=== PATIENT | male | born 1960 | race Caucasian/White ===

== ENCOUNTER 2021-06-02 18:16 | Inpatient (IN) | payer OTHER ==
--- NOTE | 2021-06-02 19:39 | RAD REPORT ---
EXAM DESCRIPTION: RAD - Chest Single View - 06/02/2021 7:27 pm CLINICAL HISTORY: DYSPNEA COMPARISON: No comparisons FINDINGS: Lines: None. Lungs: Diffuse prominence of the pulmonary interstitium. More focal type opacities are present at the right lung base. Pleural: No significant pleural effusions or pneumothorax. Cardiac: Cardiomegaly. Bones: No acute fractures. Other: IMPRESSION: Findings likely representing edema. More focal opacities at the right lung base could re present atelectasis. Pneumonia difficult to entirely exclude.
[2021-06-02 19:49] LABS: Absolute Lymphocytes (CBC) 1.2 K/uL (0.7-4.9); Basophils % 0.8 % (0-1.3); Hematocrit 45.3 % (39.6-49.0); Lymphocytes % 18.3 % (15.3-44.8); MPV 8.1 fL (7.6-11.3); RBC Red Blood Cell Count 5.27 M/uL (4.33-5.43)
--- NOTE | 2021-06-02 19:49 | ER ---
Nurse's Notes [facility] Name: Meek Abreu Age: 61 yrs Sex: Male : 1960 Arrival Date: 06/02/2021 Time: 18:24 Bed 5 Private MD: Diagnosis: Essential (primary) hypertension;Unspecified combined systolic (congestive) and diastolic (congestive) heart failure;Edema, unspecified;Unspecified kidney failure;Obesity, unspecified Presentation: 06/02 18:30 Chief complaint: Patient states: Pt states difficulty breathing x1 month, JELENA lower vg1 extremity swelling x2 weeks and JELENA lower extremity weeping. States is suppose to weight 180# but is now 220#; states weight increase within two weeks. Coronavirus screen: Vaccine status: Patient reports being unvaccinated. Client denies travel out of the [place] in the last 14 days. Ebola Screen: Patient negative for fever greater than or equal to 101.5 degrees Fahrenheit, and additional compatible Ebola Virus Disease symptoms. Initial Sepsis Screen: Does the patient meet any 2 criteria? RR > 20 per min. Risk Assessment: Do you want to hurt yourself or someone else? Patient reports no desire to harm self or others. Onset of symptoms was May 03, 2021. 18:30 Method Of Arrival: Ambulatory vg1 18:30 Acuity: KEILA 3 vg1 19:27 Initial Sepsis Screen: Does the patient have a suspected source of infection? No. as6 Patient's initial sepsis screen is negative. Triage Assessment: 18:37 General: Appears in no apparent distress. uncomfortable, Behavior is calm, cooperative. vg1 Pain: Complains of pain in chest Pain currently is 4 out of 10 on a pain scale. Respiratory: Reports shortness of breath at rest on exertion labored breathing Onset: The symptoms/episode began/occurred states difficulty breathing x1 month, the patient has moderate shortness of breath. Historical: - Allergies: 18:37 No Known Allergies; vg1 - Home Meds: 18:37 None [Active]; vg1 - Immunization history:: Client reports having NOT received the Covid vaccine. - Social history:: Smoking status: Patient reports the use of cigarette tobacco products, denies chronic smoking, but will smoke occasionally. Screenin:27 Abuse screen: Denies threats or abuse. Nutritional screening: No deficits noted. as6 Tuberculosis screening: No symptoms or risk factors identified. Fall Risk None identified. Assessment: 19:23 General: Appears in no apparent distress. comfortable, Behavior is calm, cooperative. as6 Pain: Denies pain. Neuro: Level of Consciousness is awake, alert, obeys commands, Oriented to person, place, time, situation, Reports weakness. Cardiovascular: Heart tones S1 S2 present Capillary refill < 3 seconds Patient's skin is warm and dry. Edema is 4+ to BLE pitting to BLE Parent/caregiver reports patient has had fatigue. Cardiovascular:. Respiratory: Reports shortness of breath Airway is patent Trachea midline Respiratory effort is even, unlabored, Respiratory pattern is regular, symmetrical, Breath sounds with crackles bilaterally. Derm: Skin is intact, weeping to BLE. 21:34 Reassessment: Patient appears in no apparent distress at this time. as6 22:09 Reassessment: attempted to call report. as6 Vital Signs: 18:30 BP 209 / 119; Pulse 98; Resp 26; Temp 98.1; Pulse Ox 96% ; Weight 100.24 kg; Height 5 vg1 ft. 9 in. (175.26 cm); Pain 4/10; 19:26 BP 204 / 118; Pulse 93; Resp 26 S; Pulse Ox 97% on R/A; as6 21:17 BP 199 / 116; Pulse 84; Resp 22 S; Pulse Ox 96% on R/A; as6 22:07 BP 151 / 86; Pulse 72; Resp 19 S; Pulse Ox 96% on R/A; as6 18:30 Body Mass Index 32.64 (100.24 kg, 175.26 cm) vg1 ED Course: 18:24 Patient arrived in ED. ja2 18:37 Triage completed. vg1 18:37 Arm band placed on. vg1 19:06 Barrett Bradford, RN is Primary Nurse. bp 19:21 Inserted saline lock: 18 gauge in right antecubital area, using aseptic technique. as6 Blood collected. 19:27 XRAY Chest (1 view) In Process Unspecified. EDMS 19:27 Placed in gown. Bed in low position. Call light in reach. Side rails up X2. Adult w/ as6 patient. monitor tech on. Pulse ox on. NIBP on. 19:30 Glen Worrell MD is Attending Physician. salud 19:48 Storm Williamson DO is Hospitalizing Provider. salud 21:33 COVID-19 SARS RT PCR (Document "Date of Onset" if Symptomatic) Sent. as6 22:26 No provider procedures requiring assistance completed. Patient admitted, IV remains in as6 place. Administered Medications: 20:10 Drug: Nitro-Bid (nitroglycerin) Ointment 2 % 1 inches Route: Transdermal; Site: as6 anterior chest wall; 21:26 Follow up: Response: No adverse reaction as6 20:10 Drug: Lasix (furosemide) 40 mg Route: IVP; Site: right antecubital; as6 21:26 Follow up: Response: No adverse reaction as6 20:10 Drug: Lopressor (metoprolol TARTRATE) 50 mg Route: PO; as6 21:26 Follow up: Response: No adverse reaction as6 20:10 Drug: Aspirin 325 mg Route: PO; as6 21:26 Follow up: Response: No adverse reaction as6 20:10 Drug: Pepcid (famotidine) 20 mg Route: IVP; Site: right antecubital; as6 21:26 Follow up: Response: No adverse reaction as6 21:25 Drug: Lovenox (enoxaparin) 100 mg Route: Sub-Q; Site: right lower abdomen; as6 21:26 Follow up: Response: No adverse reaction as6 21:40 Drug: hydrALAZINE 10 mg Route: PO; as6 22:22 Follow up: Response: No adverse reaction as6 21:41 Drug: hydrALAZINE 10 mg Route: IVP; Site: right antecubital; as6 22:21 Follow up: Response: No adverse reaction as6 Outcome: 19:49 Decision to Hospitalize by Provider. salud 22:27 Admitted to Med/surg accompanied by tech, via wheelchair, room 213, with chart, Report as6 called to Bobbi EUBANKS 22:27 Condition: stable 22:28 Patient left the ED. as6 Signatures: Dispatcher [employer] EDGlen Gutierres MD MD cha Peltier, Brian, RN RN Lexi Ro RN RN vg1 Sonia Gonzalez Ashby, RAIMUNDO RN as6
--- NOTE | 2021-06-02 19:49 | EDPHYS ---
Physician Documentation [facility] Name: Meek Abreu Age: 61 yrs Sex: Male : 1960 Arrival Date: 06/02/2021 Time: 18:24 Bed 5 Private MD: ED Physician Glen Worrell HPI: 06/02 19:44 This 61 yrs old Male presents to ER via Ambulatory with complaints of salud Breathing Difficulty, Feet Swelling. 19:44 The patient has shortness of breath with light activity, that woke him/her from sleep. salud Onset: The symptoms/episode began/occurred 3 day(s) ago. Duration: The symptoms are continuous, and are steadily getting worse. The patient's shortness of breath is aggravated by coughing, exertion, light activity, is alleviated by rest, sitting up, application of supplemental oxygen. Associated signs and symptoms: Pertinent positives: non-productive cough, dizziness. Severity of symptoms: At their worst the symptoms were moderate in the emergency department the symptoms are unchanged. The patient has not experienced similar symptoms in the past. Historical: - Allergies: 18:37 No Known Allergies; vg1 - Home Meds: 18:37 None [Active]; vg1 - Immunization history:: Client reports having NOT received the Covid vaccine. - Social history:: Smoking status: Patient reports the use of cigarette tobacco products, denies chronic smoking, but will smoke occasionally. ROS: 19:45 Constitutional: Negative for fever, chills, and weight loss, Eyes: Negative for injury, salud pain, redness, and discharge, ENT: Negative for injury, pain, and discharge, Neck: Negative for injury, pain, and swelling, Cardiovascular: Negative for chest pain, palpitations, and edema, Abdomen/GI: Negative for abdominal pain, nausea, vomiting, diarrhea, and constipation, Back: Negative for injury and pain, : Negative for injury, bleeding, discharge, and swelling, Skin: Negative for injury, rash, and discoloration, Neuro: Negative for headache, weakness, numbness, tingling, and seizure, Psych: Negative for depression, anxiety, suicide ideation, homicidal ideation, and hallucinations, Allergy/Immunology: Negative for hives, rash, and allergies, Endocrine: Negative for neck swelling, polydipsia, polyuria, polyphagia, and marked weight changes, Hematologic/Lymphatic: Negative for swollen nodes, abnormal bleeding, and unusual bruising. 19:45 Respiratory: Positive for cough, shortness of breath, on exertion. 19:45 MS/extremity: Positive for swelling, of the right leg and left leg. Exam: 19:45 Constitutional: This is a well developed, well nourished patient who is awake, alert, salud and in no acute distress. Head/Face: Normocephalic, atraumatic. Eyes: Pupils equal round and reactive to light, extra-ocular motions intact. Lids and lashes normal. Conjunctiva and sclera are non-icteric and not injected. Cornea within normal limits. Periorbital areas with no swelling, redness, or edema. ENT: Nares patent. No nasal discharge, no septal abnormalities noted. Tympanic membranes are normal and external auditory canals are clear. Oropharynx with no redness, swelling, or masses, exudates, or evidence of obstruction, uvula midline. Mucous membranes moist. Neck: Trachea midline, no thyromegaly or masses palpated, and no cervical lymphadenopathy. Supple, full range of motion without nuchal rigidity, or vertebral point tenderness. No Meningismus. Chest/axilla: Normal chest wall appearance and motion. Nontender with no deformity. No lesions are appreciated. Abdomen/GI: Soft, non-tender, with normal bowel sounds. No distension or tympany. No guarding or rebound. No evidence of tenderness throughout. Back: No spinal tenderness. No costovertebral tenderness. Full range of motion. Male : Normal genitalia with no discharge or lesions. Skin: Warm, dry with normal turgor. Normal color with no rashes, no lesions, and no evidence of cellulitis. Neuro: Awake and alert, GCS 15, oriented to person, place, time, and situation. Cranial nerves II-XII grossly intact. Motor strength 5/5 in all extremities. Sensory grossly intact. Cerebellar exam normal. Normal gait. Psych: Awake, alert, with orientation to person, place and time. Behavior, mood, and affect are within normal limits. 19:45 Cardiovascular: Rate: normal, Rhythm: regular, Pulses: Pulses are 4+ in bilateral radial, brachial, femoral, popliteal, posterior tibial and and dorsalis pedis arteries.. Edema: 3+ edema to level of left midcalf and right midcalf, JVD: is noted bilaterally, to the angle of the jaw. 19:45 ECG was reviewed by the Attending Physician. Vital Signs: 18:30 BP 209 / 119; Pulse 98; Resp 26; Temp 98.1; Pulse Ox 96% ; Weight 100.24 kg; Height 5 vg1 ft. 9 in. (175.26 cm); Pain 4/10; 19:26 BP 204 / 118; Pulse 93; Resp 26 S; Pulse Ox 97% on R/A; as6 21:17 BP 199 / 116; Pulse 84; Resp 22 S; Pulse Ox 96% on R/A; as6 22:07 BP 151 / 86; Pulse 72; Resp 19 S; Pulse Ox 96% on R/A; as6 18:30 Body Mass Index 32.64 (100.24 kg, 175.26 cm) vg1 MDM: 19:30 Patient medically screened. salud 19:50 Differential diagnosis: Anemia Bronchitis CHF exacerbation, pulmonary edema, Pulmonary salud Embolism Unstable Angina. Antibiotic administration: Not indicated. The patient's Wells Deep Vein Thrombosis Score was calculated as follows: Total Score: 0-2 Pts- Low Risk. The patient's pulmonary embolism risk score was calculated as follows: Total Score: 0-2 points. This patient was found to be at low risk for a pulmonary embolism by using the Well's assessment criteria. Immunization status: Influenza vaccine: Data reviewed: vital signs, nurses notes, lab test result(s), EKG, radiologic studies, plain films. Data interpreted: director of employee development: rate is 93 beats/min, rhythm is atrial fibrillation, Pulse oximetry: on room air is 97 %. Test interpretation: by ED physician or midlevel provider: ECG, plain radiologic studies. Counseling: I had a detailed discussion with the patient and/or guardian regarding: the historical points, exam findings, and any diagnostic results supporting the discharge/admit diagnosis, the presence of at least one elevated blood pressure reading (>120/80) during this emergency department visit, lab results, radiology results, the need for further work-up and treatment in the hospital. 06/02 18:51 Order name: Basic Metabolic Panel; Complete Time: 20:14 la1 06/02 18:51 Order name: CBC with Diff; Complete Time: 20:14 la1 06/02 18:51 Order name: LFT's; Complete Time: 20:14 la1 06/02 18:51 Order name: Magnesium; Complete Time: 20:14 la1 06/02 18:51 Order name: NT PRO-BNP; Complete Time: 20:14 la1 06/02 18:51 Order name: PT-INR; Complete Time: 19:57 la1 06/02 18:51 Order name: Troponin (emerg Dept Use Only); Complete Time: 20:14 la1 06/02 18:51 Order name: XRAY Chest (1 view); Complete Time: 19:43 la1 06/02 19:23 Order name: COVID-19 SARS RT PCR (Document "Date of Onset" if Symptomatic) la1 06/02 19:24 Order name: SARS-COV-2 RT PCR EDHI 06/02 20:12 Order name: CBC Smear Scan; Complete Time: 20:14 EDHI 06/02 18:51 Order name: EKG; Complete Time: 18:52 la06/02 18:51 Order name: Cardiac monitoring; Complete Time: 19:21 la 06/02 18:51 Order name: EKG - Nurse/Tech; Complete Time: 19:21 la06/02 18:51 Order name: IV Saline Lock; Complete Time: 19:21 la06/02 18:51 Order name: Labs collected and sent; Complete Time: 19:21 06/02 18:51 Order name: O2 Per Protocol; Complete Time: 19:21 la06/02 18:51 Order name: O2 Sat Monitoring; Complete Time: 19:21 la1 EC:45 Rate is 91 beats/min. Rhythm is regular. QRS Mamou is Normal. AR interval is normal. QRS salud interval is normal. QT interval is normal. No Q waves. T waves are Normal. ST Segment is depressed in leads II, III, aVF, V5, V6. Clinical impression: Abnormal EKG without significant change. Interpreted by me. Reviewed by me. Administered Medications: 20:10 Drug: Nitro-Bid (nitroglycerin) Ointment 2 % 1 inches Route: Transdermal; Site: as6 anterior chest wall; 21:26 Follow up: Response: No adverse reaction as6 20:10 Drug: Lasix (furosemide) 40 mg Route: IVP; Site: right antecubital; as6 21:26 Follow up: Response: No adverse reaction as6 20:10 Drug: Lopressor (metoprolol TARTRATE) 50 mg Route: PO; as6 21:26 Follow up: Response: No adverse reaction as6 20:10 Drug: Aspirin 325 mg Route: PO; as6 21:26 Follow up: Response: No adverse reaction as6 20:10 Drug: Pepcid (famotidine) 20 mg Route: IVP; Site: right antecubital; as6 21:26 Follow up: Response: No adverse reaction as6 21:25 Drug: Lovenox (enoxaparin) 100 mg Route: Sub-Q; Site: right lower abdomen; as6 21:26 Follow up: Response: No adverse reaction as6 21:40 Drug: hydrALAZINE 10 mg Route: PO; as6 22:22 Follow up: Response: No adverse reaction as6 21:41 Drug: hydrALAZINE 10 mg Route: IVP; Site: right antecubital; as6 22:21 Follow up: Response: No adverse reaction as6 Disposition Summary: 06/02/21 19:49 Hospitalization Ordered Hospitalization Status: Inpatient Admission salud Provider: Storm Williamson cha Location: Telemetry/MedSurg (Inpatient) salud Condition: Fair salud Problem: new salud Symptoms: have improved salud Bed/Room Type: Standard salud Room Assignment: 213(06/02/21 20:52) cg Diagnosis - Essential (primary) hypertension salud - Unspecified combined systolic (congestive) and diastolic (congestive) heart failure salud - Edema, unspecified salud - Unspecified kidney failure salud - Obesity, unspecified salud Forms: - Medication Reconciliation Form salud - SBAR form salud Signatures: Dispatcher [employer] Glen Hi MD MD cha Attema, Lee, FOOD TECHNOLOGY TEACHER-C FOOD TECHNOLOGY TEACHER-[facility]1 Temi Abbott, RN RN cg Lexi Abbott RN RN vg1 Arturo Eddy, RN RN as6 Corrections: (The following items were deleted from the chart) 20:52 19:49 salud cg
[2021-06-02 19:53] LABS: Protime INR 1.37
[2021-06-02] MEDS ORDERED: NITROGLYCERIN 1 GM PKT TD ONE (19:54)
[2021-06-02] MEDS ORDERED: METOPROLOL TAR 50 MG TAB ONE (19:54)
[2021-06-02] MEDS ORDERED: FUROSEMIDE 40 MG/4 ML VIAL ONE (19:55)
[2021-06-02] MEDS ORDERED: ASPIRIN 325 MG TAB ONE (19:55)
[2021-06-02] MEDS ORDERED: FAMOTIDINE 20 MG/2 ML VIAL IV ONE (19:55)
[2021-06-02 20:08] LABS: Albumin 2.7 g/dL (3.4-5.0); Bilirubin Direct 0.4 mg/dL (0-0.2); Bilirubin Total 0.8 mg/dL (0.2-1.0); Magnesium 1.9 mg/dL (1.8-2.4); Potassium 4.2 mmol/L (3.5-5.1); Protein, Total 7.4 g/dL (6.4-8.2); Troponin (Emerg Dept Use Only) 0.06 ng/mL (0.0-0.045)
[2021-06-02 20:11] LABS: White Blood Cell Scan OK (OK)
[2021-06-02 20:12] LABS: Blood Morphology Comment NOT SEEN (NOT SEEN); Platelet Estimate ADEQ
--- NOTE | 2021-06-02 20:25 | P.HP ---
Certification for Inpatient Patient admitted to: Inpatient With expected LOS: >2 Midnights Patient will require the following post-hospital care: None Practitioner: I am a practitioner with admitting privileges, knowledge of patient current condition, hospital course, and medical plan of care. Services: Services provided to patient in accordance with Admission requirements found in Title 42 Section 412.3 of the Code of Federal Regulations Patient History Date of Service: 06/02/21 Primary Care Provider: None Reason for admission: CHF History of Present Illness: 61-year-old male with no significant past medical history presents emergency department for lower extremity edema, weight gain and dyspnea with exertion. Patient found to have 3+ pitting edema bilateral lower extremities chest x-ray demonstrates pulmonary edema labs significant for BNP 8731 troponin 0.06 creatinine 1.34 GFR 54 glucose 155 BUN 33. Patient appears to be in new onset CHF. Patient was given IV Lasix in the emergency department as well as a beta-marcie and Nitropaste, patient without chest pain at this time ED provider is to admit for further evaluation and management of suspected new onset CHF. - Past Medical/Surgical History -: None -: Colon surgery after perforation 1999 Psychosocial/ Personal History: Patient employed in [employer], lives at home with family - Family History Father -: Heart disease Mother -: Hypertension, Diabetes - Social History Smoking Status: Current every day smoker Counseled patient to stop smoking for: less than 10 minutes Smoking therapy provided: No (Patient declined) Alcohol use: Yes CD- Drugs: No Caffeine use: Yes Place of Residence: Home Review of Systems 10-point ROS is otherwise unremarkable Respiratory: Cough, Shortness of Breath, SOB with Excertion Cardiovascular: Edema Physical Examination - Physical Exam General: Alert, In no apparent distress, Oriented x3 HEENT: Atraumatic, PERRLA, Mucous membr. moist/pink, EOMI, Sclerae nonicteric Neck: Supple, 2+ carotid pulse no bruit, No LAD, Without JVD or thyroid abnormality Respiratory: Normal air movement, Crackles/rales Cardiovascular: Regular rate/rhythm, Normal S1 S2, Edema (3+ pitting edema bilateral lower extremities) Capillary refill: <2 Seconds Gastrointestinal: Normal bowel sounds, No tenderness Musculoskeletal: No tenderness Integumentary: No rashes Neurological: Normal gait, Normal speech, Normal strength at 5/5 x4 extr, Normal tone, Normal affect Lymphatics: No axilla or inguinal lymphadenopathy - Studies Laboratory Data (last 24 hrs) 06/02/21 19:18: PT 15.8 H, INR 1.37 06/02/21 19:18: WBC 6.70, Hgb 14.4, Hct 45.3, Plt Count 209 06/02/21 19:18: Sodium 139, Potassium 4.2, BUN 33 H, Creatinine 1.34 H, Glucose 155 H, Magnesium 1.9, Total Bilirubin 0.8, AST 41 H, ALT 37, Alkaline Phosphatase 116 Assessment and Plan - Plan Assessment: Dyspnea, pedal edema, elevated BNP/troponin suspect new onset CHFunknown EF Renal insufficiency Hyperglycemia Plan: Dyspnea, pedal edema, elevated BNP/troponin suspect new onset CHFunknown EF: Initiate patient on lisinopril 5 mg p.o. daily, metoprolol 25 mg p.o. twice daily, aspirin 81 mg p.o. daily, and atorvastatin 40 mg daily, Lasix 40 mg IV 3 times daily. Cardiology consult in place, echocardiogram ordered. Patient has never had echocardiogram, stress test or cardiac catheterization. Patient likely need additional testing on an outpatient basis. Renal insufficiency: No comparison labs available, possible CKD 3 versus acute kidney injury related to CHF with exacerbation. Will obtain renal ultrasound and repeat labs tomorrow. Consult nephrology as necessary. Patient needs to establish with PCP. Hyperglycemia: Initial blood sugar 155, will obtain A1c with morning labs to determine need for antidiabetic agents. DVT PPX: Lovenox Code status: Full Discharge Plan: Home Plan to discharge in: 48 Hours - Advance Directives Does patient have a Living Will: No Does patient have a Durable POA for Healthcare: No - Code Status/Comfort Care Code Status Assessed: Yes (Full code) Critical Care: No Time Spent Managing Pts Care (In Minutes): 55
[2021-06-02] MEDS ORDERED: ENOXAPARIN 100 MG/ML SYR SQ ONE (20:59)
[2021-06-02] MEDS ORDERED: HYDRALAZINE HCL 10 MG TABLET ONE (21:38)
[2021-06-02] MEDS ORDERED: HYDRALAZINE HCL 20 MG/ML VIAL ONE (21:38)
[2021-06-02 22:55] VITALS: BMI 32.3
[2021-06-02] MEDS ORDERED: ONDANSETRON 4 MG/2 ML VIAL IV PRN (22:58)
[2021-06-02] MEDS ORDERED: MELATONIN 5 MG TABLET PO PRN (23:42)
[2021-06-03] MEDS: ATORVASTATIN 40 MG TAB PO SCH ×2 (00:46→21:24)
[2021-06-03] MEDS ORDERED: FUROSEMIDE 40 MG/4 ML VIAL IV SCH (01:00)
[2021-06-03 01:32] LABS: Urine Appearance CLEAR (Clear); Urine Bilirubin NEGATIVE (Negative); Urine Blood NEGATIVE (Negative); Urine Color YELLOW (Yellow); Urine Glucose NEGATIVE (Negative); Urine Protein NEGATIVE (Negative); Urine Specific Gravity <=1.005 (1.005-1.030)
[2021-06-03 01:35] LABS: Urine Microscopic Reflex NO UMIC
[2021-06-03] MEDS: METOPROLOL TAR 25 MG TAB PO SCH ×2 (05:37→17:51)
--- NOTE | 2021-06-03 05:48 | P.PN ---
Subjective Date of Service: 06/03/21 Primary Care Provider: None Chief Complaint: CHF Subjective: Improving, Doing well Physical Examination - Vital Signs Temperature: 97.2 F Blood Pressure: 167/81 Pulse: 73 Respirations: 18 Pulse Ox (%): 93 - Studies Laboratory Data (last 24 hrs) 06/02/21 19:18: PT 15.8 H, INR 1.37 06/02/21 19:18: WBC 6.70, Hgb 14.4, Hct 45.3, Plt Count 209 06/02/21 19:18: Sodium 139, Potassium 4.2, BUN 33 H, Creatinine 1.34 H, Glucose 155 H, Magnesium 1.9, Total Bilirubin 0.8, AST 41 H, ALT 37, Alkaline Phosphatase 116 Assessment & Plan Discharge Plan: Home Plan to discharge in: 24 Hours Physician Review Additional Text: COVID: Negative CXR: COMPARISON: No comparisons FINDINGS: Lines: None. Lungs: Diffuse prominence of the pulmonary interstitium. More focal type opacities are present at the right lung base. Pleural: No significant pleural effusions or pneumothorax. Cardiac: Cardiomegaly. Bones: No acute fractures. IMPRESSION: Findings likely representing edema. More focal opacities at the right lung base could represent atelectasis. Pneumonia difficult to entirely exclude. Renal US: pending Physical exam: General: Alert, In no apparent distress, Oriented x3 HEENT: Neck supple Respiratory: Clear anteriorly. Currently on room air Cardiovascular: Regular rate/rhythm, Normal S1 S2, Edema (1+ pitting edema bilateral lower extremities) Capillary refill: <2 Seconds Gastrointestinal: Normal bowel sounds, No tenderness Musculoskeletal: Edema to the lower extremities improved. Currently with 1+ pitting edema. Integumentary: No rashes Neurological: Normal gait, Normal speech, Normal strength at 5/5 x4 extr, Normal tone, Normal affect Lymphatics: No axilla or inguinal lymphadenopathy Impression: Dyspnea, pedal edema, elevated BNP/troponin likely secondary to new acute diastolic CHF Renal insufficiency Hyperglycemia with new diagnosis of diabetes mellitus type 2 New diagnosis hypertension New diagnosis hyperlipidemia Obesity, BMI 32.4 Plan: Dyspnea, pedal edema, elevated BNP/troponin likely secondary to new acute diastolic CHF: Patient responding well to IV diuretic therapy. Continue with IV diuresisLasix 40 mg IV twice daily. Patient has been started on blood pressure medicationlisinopril 5 mg daily and metoprolol 25 mg 1 pill twice daily along with aspirin 81 mg daily and Lipitor 40 mg daily. Cardiology consulted. Await further evaluation and recommendation. Will obtain echocardiogram. This will likely be done on Saturday. Will discuss further with cardiology. Acute renal insufficiency likely underlying chronic renal disease stage II: Overall stable. Will monitor closely. Renal ultrasound obtained. Hyperglycemia with new diagnosis of diabetes mellitus type 2: Hemoglobin A1c 9.0. Blood sugar stable. Continue Accu-Cheks and sliding scale for now. Patient will likely require medication at discharge. Will teach on diabetes. Will try to arrange for patient establish care with a PCP. Hypertension: New diagnosis. Blood pressures currently stable on lisinopril 5 mg daily and metoprolol 25 mg 1 pill twice daily which has been started. Will monitor and adjust appropriately. Hyperlipidemia: LDL elevated at 98. Lipitor started. Continue with Lipitor 40 mg daily. Obesity, BMI 32.4: Continue lifestyle modification education. DVT PPX: Lovenox Code status: Full Discharge Plan: Home Time Spent Managing Pts Care (In Minutes): 55
[2021-06-03 06:02] LABS: Absolute Lymphocytes (CBC) 1.4 K/uL (0.7-4.9); Basophils % 0.7 % (0-1.3); Hematocrit 46.8 % (39.6-49.0); Lymphocytes % 21.3 % (15.3-44.8); MPV 8.2 fL (7.6-11.3); RBC Red Blood Cell Count 5.46 M/uL (4.33-5.43)
[2021-06-03 06:32] LABS: Albumin 2.8 g/dL (3.4-5.0); Bilirubin Total 0.8 mg/dL (0.2-1.0); Magnesium 2.1 mg/dL (1.8-2.4); Potassium 3.7 mmol/L (3.5-5.1); Protein, Total 7.6 g/dL (6.4-8.2); Thyroid Stimulating Hormone 3.64 uIU/mL (0.360-3.740); Troponin I 0.05 ng/mL (0.0-0.045)
[2021-06-03] MEDS ORDERED: POTASSIUM 25 MEQ EFFERV TAB PO ONE (09:00)
[2021-06-03] MEDS ORDERED: lisinopriL 5 MG TAB PO SCH (09:00)
[2021-06-03] MEDS ORDERED: NA CHLORIDE 0.9% 100 ML ONE (09:26)
[2021-06-03] MEDS: ASPIRIN EC 81 MG TAB PO SCH (09:29)
[2021-06-03] MEDS: FUROSEMIDE 40 MG/4 ML VIAL IV SCH ×2 (09:29→21:24)
--- NOTE | 2021-06-03 10:16 | RAD REPORT ---
EXAM DESCRIPTION: US - Renal Ultrasound-Complete - 06/02/2021 11:47 pm CLINICAL HISTORY: CARLOS A vs CKD COMPARISON: No comparisons FINDINGS: Both kidneys are normal in size, shape and echotexture. The right kidney measures 9.4 cm. Small simple appearing cyst measuring 11 mm in the right kidney. Pu nctate echogenic focus in the right renal cortex may represent a renal parenchymal calcification. No suspicious masses. No hydronephrosis. The left kidney measures 12 cm. Small cortical echogenicity measuring 4 millimeters may be a parenchy mal calcification . No suspicious masses are identified. No hydronephrosis . The urinary bladder is incompletely distended without gross abnormality seen. IMPRESSION: No evidence of hydronephrosis. A few incidental findings as noted above.
[2021-06-03] MEDS: ENOXAPARIN 40 MG/0.4 ML SQ SCH (13:18)
[2021-06-03] MEDS: HYDRALAZINE HCL 25 MG TABLET PO SCH ×2 (13:18→21:23)
[2021-06-03] MEDS: HYDRALAZINE HCL 20 MG/ML VIAL IV PRN (16:23)
--- NOTE | 2021-06-03 18:35 | CON ---
Date of Consultation: 06/03/2021 Reason For Consultation: Congestive heart failure. History Of Present Illness: 61-year-old male with no medical history. Presented with worsening shor tness of breath, lower extremity edema, and orthopnea. Denies having any chest pain. Evaluation in the emergency room, was in pulmonary edema. No known history of congestive heart failure. Started o n IV diuretics. He feels better breathing elise, but he has still significant edema. Denies having a ny chest pain. Past Medical History: None. Medications: Refer reconciliation sheet for detailed list. Allergies: NO KNOWN DRUG ALLERGIES. Past Surgical History: Colon surgery. Family History: No premature coronary artery disease or cancer. Social History: He is a smoker. Does not drink or use any drugs. Review of Systems: All systems reviewed and they were negative except as mentioned in the HPI. Physical Examination: Vital Signs: Temperature is 96.5, pulse 70, breathing at 16, blood pressure 173/109. General: Pleasant, middle-aged male, in no apparent distress. Head and Neck: Pupils are equal and reactive to light. Intact eye movements. Mild JVD elevation. Neck: Supple. Thyroid is not enlarged. Lungs: Faint crackles in bases. No accessory muscle use or muscle retraction. Heart: Regular rate and rhythm with S3. Abdomen: Soft, nontender. Bowel sounds positive. No organomegaly. No masses or hernia. No rigidi ty or rebound. Extremities: 3+ pitting edema bilaterally. No clubbing, cyanosis. Intact pulses. Skin: No rashes. Neurologic: Alert, awake, oriented x3. No acute focal deficits appreciated. Investigations: Troponin 0.06. NT-proBNP is 8731. Creatinine is 1.1, down from 1.3. Hemoglobin A1 c is 9. Assessment And Recommendation: 1.Acute congestive heart failure. Unknown ejection fraction. This is a new diagnosis. Obtain an e chocardiogram and continue IV diuresis with Lasix 40 mg q.12 hours. Continue to monitor BUN, creatin ine, electrolytes. The patient will need at least 2 more days of diuresis and monitor kidney functio n closely while doing that. 2.Hypertension, uncontrolled blood pressures. Started on lisinopril and hydralazine and beta-blocke r. I expect his blood pressure will improve with further diuresis. Low-salt diet is advised and we will monitor blood pressure. 3.Borderline elevated troponin, likely due to the heart failure. Obtain echo on Saturday. Start aspi rin 81 mg and the patient will need to have ischemic workup, which can be arranged for as an outpatie nt and all that depends on the findings of the ejection fraction on the echo. SR/MODL Voice ID: [id number] Report ID: [id number]
[2021-06-03] MEDS: lisinopriL 5 MG TAB PO SCH (21:23)
[2021-06-04] MEDS: METOPROLOL TAR 25 MG TAB PO SCH ×2 (06:04→17:56)
[2021-06-04] MEDS: HYDRALAZINE HCL 20 MG/ML VIAL IV PRN ×2 (06:08→16:32)
[2021-06-04 06:09] LABS: Absolute Lymphocytes (CBC) 1.1 K/uL (0.7-4.9); Basophils % 0.5 % (0-1.3); Lymphocytes % 18.4 % (15.3-44.8); MPV 8.3 fL (7.6-11.3); RBC Red Blood Cell Count 5.15 M/uL (4.33-5.43)
--- NOTE | 2021-06-04 06:26 | P.PN ---
Subjective Date of Service: 06/04/21 Primary Care Provider: None Chief Complaint: CHF Subjective: Improving Physical Examination - Vital Signs Temperature: 98.3 F Blood Pressure: 175/91 Pulse: 79 Respirations: 18 Pulse Ox (%): 96 Assessment & Plan Discharge Plan: Home Plan to discharge in: 24 Hours Physician Review Additional Text: COVID: Negative CXR: COMPARISON: No comparisons FINDINGS: Lines: None. Lungs: Diffuse prominence of the pulmonary interstitium. More focal type opacities are present at the right lung base. Pleural: No significant pleural effusions or pneumothorax. Cardiac: Cardiomegaly. Bones: No acute fractures. IMPRESSION: Findings likely representing edema. More focal opacities at the right lung base could represent atelectasis. Pneumonia difficult to entirely exclude. Renal US: COMPARISON: No comparisons FINDINGS: Both kidneys are normal in size, shape and echotexture. The right kidney measures 9.4 cm. Small simple appearing cyst measuring 11 mm in the right kidney. Punctate echogenic focus in the right renal cortex may represent a renal parenchymal calcification. No suspicious masses. No hydronephrosis. The left kidney measures 12 cm. Small cortical echogenicity measuring 4 millimeters may be a parenchymal calcification . No suspicious masses are identified. No hydronephrosis . The urinary bladder is incompletely distended without gross abnormality seen. IMPRESSION: No evidence of hydronephrosis. A few incidental findings as noted above. ECHO: TBD Physical exam: General: Alert, In no apparent distress, Oriented x3. Blood pressure still slightly elevated. HEENT: Neck supple Respiratory: Clear anteriorly. Currently on room air Cardiovascular: Regular rate/rhythm, Normal S1 S2, edema to the lower extremities improved. Edema (1+ pitting edema bilateral lower extremities) Capillary refill: <2 Seconds Gastrointestinal: Normal bowel sounds, No tenderness Musculoskeletal: Edema to the lower extremities improved. Currently with 1+ pitting edema. Edema to the lower extremities improved. Integumentary: No rashes Neurological: Normal gait, Normal speech, Normal strength at 5/5 x4 extr, Normal tone, Normal affect Lymphatics: No axilla or inguinal lymphadenopathy Impression: Dyspnea, pedal edema, elevated BNP/troponin likely secondary to new acute diastolic CHF Renal insufficiency Hyperglycemia with new diagnosis of diabetes mellitus type 2 New diagnosis hypertension New diagnosis hyperlipidemia Obesity, BMI 32.4 Plan: Dyspnea, pedal edema, elevated BNP/troponin likely secondary to new acute diastolic CHF: Patient continues to improve with IV diuresis. Currently on Lasix 40 mg IV twice daily. Teach on CHF. Continue 1500 cc/day fluid restriction and low-salt diet. Continue aspirin and DVT prophylaxis. Blood pressure still elevated. Will increase metoprolol. Case reviewed with cardiology. Continue with diuresis. Patient will need heart cath as an outpatient to further evaluate. Anticipate continued improvement, likely discharge tomorrow after echocardiogram. Patient needs to establish care with a PCP. Social work to help provide a list of PCPs in the area. Patient will continue with current medications. I will turn the service over to the hospitalist team tomorrow. I will go over the plan of care with him. Acute renal insufficiency likely underlying chronic renal disease stage II: Overall stable. Will monitor closely. Renal ultrasound shows no evidence of hydronephrosis. Simple small cyst noted to the right kidney. No parenchymal changes noted. Renal function stable. Hyperglycemia with new diagnosis of diabetes mellitus type 2: Hemoglobin A1c 9.0. Blood sugar stable. Continue Accu-Cheks and sliding scale for now. Consider starting low-dose Metformin at discharge. This will need to be monitored closely since the patient has some suspected underlying chronic renal disease. We will teach on diabetes. Patient will need to establish care with a PCP in the near future to further address. Recommend to recheck hemoglobin A1c every 3 months. Hypertension: New diagnosis. Blood pressure still elevated. Medications have been adjusted. Will increase metoprolol today for better control. Continue lisinopril 10 mg 1 pill twice daily, hydralazine 25 mg 1 pill twice daily, and metoprolol 50 mg 1 pill twice daily. Continue to monitor and adjust medication. Hyperlipidemia: LDL elevated at 98. Lipitor started. Continue with Lipitor 40 mg daily. Obesity, BMI 32.4: Continue lifestyle modification education. DVT PPX: Lovenox Code status: Full code Discharge Plan: Home at discharge Time Spent Managing Pts Care (In Minutes): 55
[2021-06-04 06:30] LABS: Albumin 2.5 g/dL (3.4-5.0); Bilirubin Total 0.8 mg/dL (0.2-1.0); Potassium 3.4 mmol/L (3.5-5.1); Protein, Total 6.8 g/dL (6.4-8.2)
[2021-06-04] MEDS ORDERED: POTASSIUM CL SA 10 MEQ TAB PO ONE (09:00)
[2021-06-04 09:18] LABS: Anisocytosis 1+; Blood Morphology Comment NOTED (NOT SEEN); Platelet Estimate ADEQ
[2021-06-04] MEDS: ASPIRIN EC 81 MG TAB PO SCH (09:41)
[2021-06-04] MEDS: FUROSEMIDE 40 MG/4 ML VIAL IV SCH ×2 (09:41→22:17)
[2021-06-04] MEDS: ENOXAPARIN 40 MG/0.4 ML SQ SCH (09:41)
[2021-06-04] MEDS: lisinopriL 5 MG TAB PO SCH ×2 (09:41→22:17)
[2021-06-04] MEDS: HYDRALAZINE HCL 25 MG TABLET PO SCH ×2 (09:41→22:25)
--- NOTE | 2021-06-04 17:24 | PN ---
Date of Progress Note: 06/04/2021 Subjective: Seen by bedside. Breathing is better. Still has lower extremity edema. Review of Systems: No chest pain. Has shortness of breath on exertion with lower extremity edema. No nausea, vomiting, or diarrhea. No abdominal pain, dysuria, or urinary urgency. All other systems reviewed and were n egative. Physical Examination: Vital Signs: Temperature is 97.1, pulse 77, breathing at 18, blood pressure 155/89, saturating 95% o n room air. General: Pleasant middle-aged male, in no distress. Head and Neck: Pupils are equal, reactive to light. Intact eye movements. No JVD. No cervical lym phadenopathy. Neck: Supple. Thyroid is not enlarged. Lungs: Clear to auscultation bilaterally. No rhonchi, rales, or crackles. No accessory muscle use. Heart: Regular rate and rhythm. No extra sounds. Abdomen: Soft, nontender. Bowel sounds positive. No organomegaly. No masses or hernia. No rigidi ty or rebound. Extremities: 2+ edema bilaterally. No clubbing or cyanosis. Intact pulses. Skin: No rash. Neuro: Alert, awake, oriented x3. No acute focal deficits appreciated. Investigations: White blood cell count is 6.1, hemoglobin 14.1. BUN is 27, creatinine is 1.2. Assessment And Recommendations: 1.Acute congestive heart failure, responding very well to diuretics. Continue IV Lasix. Monitor BU N, creatinine, electrolytes, and please make sure the patient gets an echo tomorrow. Further plan to follow after evaluating his ejection fraction. 2.Hypertension. Blood pressure is getting better. Continue current medications along with diuresis . SR/MODL Voice ID: [id number] Report ID: [id number]
[2021-06-04] MEDS: ATORVASTATIN 40 MG TAB PO SCH (22:18)
[2021-06-04 22:39] VITALS: O2SAT 96
[2021-06-05] MEDS: METOPROLOL TAR 25 MG TAB PO SCH (05:03)
[2021-06-05 06:02] LABS: Absolute Lymphocytes (CBC) 1.1 K/uL (0.7-4.9); Basophils % 0.9 % (0-1.3); Hematocrit 43.4 % (39.6-49.0); Lymphocytes % 16.5 % (15.3-44.8); MPV 8.1 fL (7.6-11.3); RBC Red Blood Cell Count 5.08 M/uL (4.33-5.43)
[2021-06-05 06:16] LABS: Albumin 2.6 g/dL (3.4-5.0); Bilirubin Total 0.7 mg/dL (0.2-1.0); Potassium 3.6 mmol/L (3.5-5.1); Protein, Total 7.2 g/dL (6.4-8.2)
--- NOTE | 2021-06-05 07:48 | RAD REPORT ---
EXAM DESCRIPTION: Shae Single View06/05/2021 6:04 am CLINICAL HISTORY: Shortness of breath COMPARISON: June 02, 2021 FINDINGS: Worsening in [id number] bilateral pulmonary opacities. Heart remains enlarged IMPRESSION: Worsening in mild to moderate pulmonary edema
[2021-06-05] MEDS ORDERED: POTASSIUM CL SA 10 MEQ TAB PO ONE (09:00)
[2021-06-05] MEDS: HYDRALAZINE HCL 25 MG TABLET PO SCH (09:53)
[2021-06-05] MEDS: lisinopriL 5 MG TAB PO SCH (09:53)
[2021-06-05] MEDS: ASPIRIN EC 81 MG TAB PO SCH (09:53)
[2021-06-05] MEDS: ENOXAPARIN 40 MG/0.4 ML SQ SCH (09:53)
[2021-06-05] MEDS: FUROSEMIDE 40 MG/4 ML VIAL IV SCH (09:54)
[2021-06-05 12:07] VITALS: BP 177/84; TEMP 97.3
--- NOTE | 2021-06-05 14:06 | ECHO ---
HEIGHT: 5 ft 9 in WEIGHT: 208 lb 6.4 oz DATE OF STUDY: 06/05/[address]: Jim Luevano NP 2-DIMENSIONAL: YES M.MODE: YES DOPPLER: YES COLOR FLOW: YES TDS: NO PORTABLE: NO DEFINITY: NO BUBBLE STUDY: NO DIAGNOSIS: DYSPNEA CARDIAC HISTORY: CATHERIZATION: SURGERY: PROSTHETIC VALVE: PACEMAKER: MEASUREMENTS (cm) DIASTOLIC (NORMALS) SYSTOLIC (NORMALS) IVSd 1.4 (0.6-1.2) LA Diam 3.7 (1.9-4.0) LVEF 40-45% LVIDd 5.3 (3.5-5.7) LVIDs 4.5 (2.0-3.5) %FS 17% LVPWd 1.4 (0.6-1.2) Ao Diam 3.1 (2.0-3.7) 2 DIMENSIONAL ASSESSMENT: RIGHT ATRIUM: NORMAL LEFT ATRIUM: NORMAL RIGHT VENTRICLE: NORMAL LEFT VENTRICLE: DEPRESSED TRICUSPID VALVE: MILD TRICUSPID REGURGITATION MITRAL VALVE: MITRAL ANNULAR CALCIFICATION WITH MILD MITRAL REGURGITATION PULMONIC VALVE: NORMAL AORTIC VALVE: CALCIFIED, NO AORTIC STENOSIS PERICARDIAL EFFUSION: NONE AORTIC ROOT: NORMAL LEFT VENTRICULAR WALL MOTION: MILD GLOBAL HYPOKINESIS. DOPPLER/COLOR FLOW: SEE BELOW. COMMENTS: MILDLY DEPRESSED LEFT VENTRICULAR EJECTION FRACTION 40-45%. MILD GLOBAL HYPOKINESIS. MILD TRICUSPID AND MITRAL REGURGITATION. RIGHT VENTRICULAR SYSTOLIC PRESSURE OF 50-55 WITH RIGHT ATRIAL PRESSURE OF GREATER THAN 20mmHg WITH ELEVATED FILLING PRESSURE. MODERATE DIASTOLIC DYSFUNCTION. TECHNOLOGIST: RAQUEL BAKER
--- NOTE | 2021-06-07 07:55 | P.DS ---
Discharge Date: 06/05/21 Primary Care Provider: None Disposition: ROUTINE DISCHARGE Discharge Condition: GOOD Reason for Admission: CHF Brief History of Present Illness: Patient is a 61-year-old male with no significant past medical history presents emergency department for lower extremity edema, weight gain and dyspnea with exertion. Patient found to have 3+ pitting edema bilateral lower extremities chest x-ray demonstrates pulmonary edema labs significant for BNP 8731 troponin 0.06 creatinine 1.34 GFR 54 glucose 155 BUN 33. Patient appears to be in new onset CHF. Patient was given IV Lasix in the emergency department as well as a beta-marcie and Nitropaste, patient without chest pain at this time ED provider is to admit for further evaluation and management of suspected new onset CHF. Hospital Course: Patient is clinically doing much better. Patient was diuresed. Patient's respiratory status is stable. Patient does have cardiomyopathy. Patient also with severe pulmonary hypertension. Patient with systolic and diastolic heart failure. Patient will need close follow-up with Pulmonary and Cardiology. At this time, patient is clinically doing well and is stable for discharge home. Vital Signs/Physical Exam: Temp Pulse Resp BP Pulse Ox 97.3 F 75 18 177/84 H 99 06/05/21 12:00 06/05/21 12:00 06/05/21 12:00 06/05/21 12:00 06/05/21 12:00 General: Alert, In no apparent distress, Oriented x3 Laboratory Data at Discharge: WBC 6.60 K/uL (4.3-10.9) 06/05/21 05:40 Hgb 13.8 g/dL (13.6-17.9) 06/05/21 05:40 Hct 43.4 % (39.6-49.0) 06/05/21 05:40 Plt Count 202 K/uL (152-406) 06/05/21 05:40 PT 15.8 SECONDS (9.5-12.5) H 06/02/21 19:18 INR 1.37 06/02/21 19:18 Sodium 141 mmol/L (136-145) 06/05/21 05:40 Potassium 3.6 mmol/L (3.5-5.1) 06/05/21 05:40 BUN 24 mg/dL (7-18) H 06/05/21 05:40 Creatinine 1.22 mg/dL (0.55-1.3) 06/05/21 05:40 Glucose 155 mg/dL (74-106) H 06/05/21 05:40 Magnesium 2.0 mg/dL (1.8-2.4) 06/05/21 05:40 Total Bilirubin 0.7 mg/dL (0.2-1.0) 06/05/21 05:40 AST 25 U/L (15-37) 06/05/21 05:40 ALT 28 U/L (12-78) 06/05/21 05:40 Alkaline Phosphatase 111 U/L (45-117) 06/05/21 05:40 Troponin I 0.05 ng/mL (0.0-0.045) H 06/03/21 05:06 Triglycerides 85 mg/dL (<150) 06/03/21 05:06 Cholesterol 140 mg/dL (<200) 06/03/21 05:06 HDL Cholesterol 25 mg/dL (40-60) L 06/03/21 05:06 Cholesterol/HDL Ratio 5.60 06/03/21 05:06 Home Medications: Atorvastatin Calcium [Lipitor] 40 mg PO BEDTIME #30 tab 06/05/21 Furosemide [Lasix] 20 mg PO BIDL #60 tab 06/05/21 Hydralazine [Apresoline*] 25 mg PO BID #60 tab 06/05/21 Metoprolol Tartrate [Lopressor*] 50 mg PO BID 6AM 6PM #60 tab 06/05/21 lisinopriL [Prinivil*] 10 mg PO BID #60 tab 06/05/21 New Medications: Hydralazine [Apresoline*] 25 mg PO BID #60 tab Furosemide [Lasix] 20 mg PO BIDL #60 tab Atorvastatin Calcium [Lipitor] 40 mg PO BEDTIME #30 tab Metoprolol Tartrate [Lopressor*] 50 mg PO BID 6AM 6PM #60 tab lisinopriL [Prinivil*] 10 mg PO BID #60 tab Physician Discharge Instructions: OK TO DC IV AND DC HOME FOLLOW-UP WITH PRIMARY CARE PROVIDER IN 1-2 WEEKS FOLLOW-UP WITH CARDIOLOGY IN 1-2 WEEKS RETURN TO THE ER IF symptoms worsens CALL or TEXT DR. ISAAC AT [phone] IF ANY QUESTIONS REGARDING HOSPITAL STAY. PLEASE CALL THE FLOOR AT [phone] IF ANY MEDICATION OR NURSING QUESTIONS. 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
== END 2021-06-05 16:50 | disposition home or self-care (01) | DRG 291 ==
LOC: ER 18:16 → ERHOLD 20:01 → 2ND 22:15
PROVIDERS: ADMIT Family Medicine; ATTEND Hospitalist
DX: I13.0 Hypertensive heart and chronic kidney disease with heart failure and stage 1 through stage 4 chronic kidney disease, or unspecified chronic kidney disease (principal); I50.41 Acute combined systolic (congestive) and diastolic (congestive) heart failure; N18.2 Chronic kidney disease, stage 2 (mild); E11.22 Type 2 diabetes mellitus with diabetic chronic kidney disease; E11.65 Type 2 diabetes mellitus with hyperglycemia; I27.20 Pulmonary hypertension, unspecified; E78.5 Hyperlipidemia, unspecified; F17.210 Nicotine dependence, cigarettes, uncomplicated; N28.9 Disorder of kidney and ureter, unspecified; I42.9 Cardiomyopathy, unspecified; E66.9 Obesity, unspecified; Z68.32 Body mass index [BMI] 32.0-32.9, adult; Z79.899 Other long term (current) drug therapy; Z20.822 Contact with and (suspected) exposure to COVID-19
CPT/HCPCS: 36415; 71045; 76770; 80048; 80053; 80061; 80076; 81003; 83036; 83735; 83880; 84132; 84439; 84443; 84484; 85025; 85610; 93005; 93306; 94010; 96372; 96374; 96375; 99285; J0360; J1650; J1940; U0003